=== PATIENT | male | born 1990 | race Caucasian/White ===

== ENCOUNTER → 2016-09-08 | Outpatient (CLI) | payer SELFPAY ==
[~2016-09-08] MED LIST: AEROSPAN80 MCG/Act IH; ALBUTEROL0.09 MG/A2 INH; ALBUTEROL2.5 MG/0.5 INH; ANAPROX DS550 MG PO; CLARITIN10 MG PO; FLOVENT0.044 MG/A IH; LEVOFLOXACIN500 MG PO; LOMOTIL 0.025 M1 TA1 PO; MEDROL DOSEPAK4 MG PO; NKHM; PHENERGAN25 M1 PO; PREDNICOT20 MG PO; PREDNISONE10 MG PO; PREDNISONE20 M1 PO; PROAIR HFA0.09 MG/AC IH; PROVENTIL0.09 MG/AC IH; ROBITUSSIN AC 110 ML PO; SEPTRA DS 800 M1 TAB PO; VIBRAMYCIN100 MG PO; ZITHROMAX Z PA250 MG PO; ZITHROMAX250 MG PO
== END | disposition home or self-care (01) ==
LOC: RESCLI 02:39
DX: J45.909 Unspecified asthma, uncomplicated (principal); F17.211 Nicotine dependence, cigarettes, in remission; Z88.0 Allergy status to penicillin

== ENCOUNTER → 2017-03-08 | Outpatient (CLI) | payer SELFPAY | END | disposition home or self-care (01) | LOC: RESCLI 03:32 | DX: J45.909 Unspecified asthma, uncomplicated (principal); Z88.0 Allergy status to penicillin ==

== ENCOUNTER 2018-01-26 15:10 | Emergency (ER) | payer SELFPAY ==
[~2018-01-26] VITALS: Ht 200.6 cm; Wt 104.3 kg
[2018-01-26] MEDS ORDERED: SYMB80 INH (15:19)
[2018-01-26] MEDS ORDERED: PREDNISONE20 M1 PO (17:03)
== END 2018-01-26 17:02 | disposition home or self-care (01) ==
LOC: ED 15:10
DX: J45.901 Unspecified asthma with (acute) exacerbation (principal); Z88.0 Allergy status to penicillin

== ENCOUNTER 2018-06-10 16:30 | Emergency (ER) | payer SELFPAY ==
[~2018-06-10] VITALS: Ht 200.6 cm; Wt 104.3 kg
[~2018-06-10 16:30] MED LIST changes: +SYMB80 INH
[2018-06-10] MEDS ORDERED: CLARITIN10 MG PO (16:44)
[2018-06-10] MEDS ORDERED: PROAIR HFA8.5 GM INH (16:44)
[2018-06-10] MEDS ORDERED: PREDNISONE10 MG PO (16:44)
[2018-06-10] MEDS ORDERED: FLONASE ALLERG9.9 ML NAS (16:44)
== END 2018-06-10 17:40 | disposition home or self-care (01) ==
LOC: ED 16:30
DX: J20.9 Acute bronchitis, unspecified (principal); R03.0 Elevated blood-pressure reading, without diagnosis of hypertension; J45.909 Unspecified asthma, uncomplicated; F17.200 Nicotine dependence, unspecified, uncomplicated; Z88.0 Allergy status to penicillin; Z79.899 Other long term (current) drug therapy

== ENCOUNTER 2019-02-24 22:26 | Emergency (ER) | payer SELFPAY ==
[~2019-02-24] VITALS: Ht 200.6 cm; Wt 104.3 kg
[~2019-02-24 22:26] MED LIST changes: +FLONASE ALLERG9.9 ML NAS; +PROAIR HFA8.5 GM INH
== END 2019-02-24 22:48 | disposition home or self-care (01) ==
LOC: ED 22:26
DX: J45.909 Unspecified asthma, uncomplicated (principal); Z76.0 Encounter for issue of repeat prescription; Z88.0 Allergy status to penicillin; Z79.899 Other long term (current) drug therapy

== ENCOUNTER 2019-03-30 14:52 | Emergency (ER) | payer SELFPAY ==
[~2019-03-30] VITALS: Ht 200.6 cm; Wt 104.3 kg
[2019-03-30] MEDS ORDERED: PREDNISONE20 M1 PO (15:27)
[2019-03-30] MEDS ORDERED: PROVENTIL HFA6.7 GM INH (15:27)
== END 2019-03-30 15:51 | disposition home or self-care (01) ==
LOC: ED 14:52
DX: J45.901 Unspecified asthma with (acute) exacerbation (principal); Z88.0 Allergy status to penicillin; Z79.899 Other long term (current) drug therapy

== ENCOUNTER 2019-05-26 14:55 | Emergency (ER) | payer SELFPAY ==
[~2019-05-26] VITALS: Ht 200.6 cm; Wt 104.3 kg
[~2019-05-26 14:55] MED LIST changes: +PROVENTIL HFA6.7 GM INH
[2019-05-26] MEDS ORDERED: PROAIR HFA8.5 GM INH (15:21)
[2019-05-26] MEDS ORDERED: PREDNISONE50 MG PO (15:21)
== END 2019-05-26 15:29 | disposition home or self-care (01) ==
LOC: ED 14:55
DX: J45.901 Unspecified asthma with (acute) exacerbation (principal); Z76.0 Encounter for issue of repeat prescription; F17.200 Nicotine dependence, unspecified, uncomplicated; Z79.899 Other long term (current) drug therapy; Z88.0 Allergy status to penicillin

== ENCOUNTER 2019-07-30 14:52 | Emergency (ER) | payer SELFPAY ==
[~2019-07-30] VITALS: Ht 200.6 cm; Wt 113.4 kg
[~2019-07-30 14:52] MED LIST changes: +PREDNISONE50 MG PO
[2019-07-30] MEDS ORDERED: PROVENTIL HFA6.7 GM INH (15:10)
[2019-07-30] MEDS ORDERED: PREDNISONE20 M1 PO (15:28)
== END 2019-07-30 15:58 | disposition home or self-care (01) ==
LOC: ED 14:52
DX: J45.909 Unspecified asthma, uncomplicated (principal); Z76.0 Encounter for issue of repeat prescription; Z88.0 Allergy status to penicillin

== ENCOUNTER → 2020-02-29 | Outpatient (CLI) | payer SELFPAY | END | disposition home or self-care (01) | LOC: RESCLI 00:37 | DX: J45.909 Unspecified asthma, uncomplicated (principal); Z00.00 Encounter for general adult medical examination without abnormal findings; Z13.39 Encounter for screening examination for other mental health and behavioral disorders; Z72.0 Tobacco use; Z71.6 Tobacco abuse counseling; Z88.0 Allergy status to penicillin; Z79.899 Other long term (current) drug therapy ==

== ENCOUNTER → 2020-06-10 | Outpatient (CLI) | payer SELFPAY | END | disposition home or self-care (01) | LOC: RESCLI 02:17 | PROVIDERS: ATTEND Internal Medicine Nephrology | DX: J45.909 Unspecified asthma, uncomplicated (principal); Z00.00 Encounter for general adult medical examination without abnormal findings; Z13.39 Encounter for screening examination for other mental health and behavioral disorders; F17.210 Nicotine dependence, cigarettes, uncomplicated; Z79.899 Other long term (current) drug therapy; Z88.0 Allergy status to penicillin ==

== ENCOUNTER → 2020-12-02 | Outpatient (CLI) | payer SELFPAY | END | disposition home or self-care (01) | LOC: RESCLI 00:47 | PROVIDERS: ATTEND Internal Medicine Nephrology | DX: J45.909 Unspecified asthma, uncomplicated (principal); F17.210 Nicotine dependence, cigarettes, uncomplicated; Z79.899 Other long term (current) drug therapy; Z88.0 Allergy status to penicillin ==

== ENCOUNTER → 2022-01-27 | Outpatient (CLI) | payer SELFPAY | END | disposition home or self-care (01) | LOC: RESCLI 01-26 04:58 | PROVIDERS: ATTEND Internal Medicine | DX: J45.909 Unspecified asthma, uncomplicated (principal); Z72.0 Tobacco use; Z79.899 Other long term (current) drug therapy; Z88.0 Allergy status to penicillin ==

== ENCOUNTER 2024-05-03 19:29 | Emergency (ER) | payer SELFPAY ==
[~2024-05-03] VITALS: Ht 200.6 cm; Wt 108.9 kg
[2024-05-03] MEDS ORDERED: Albuterol Sulfate 2.5 MG/3 ML VIAL NEB ONE (20:30)
[2024-05-03] MEDS ORDERED: methylPREDNISolone sod succ 125 MG VIAL IM ONE (20:30)
[2024-05-03 20:44] LABS: BASO % 0.4 % (0.0-1.0); EOS % 0.5 % (1.0-4.0); HEMATOCRIT 46.8 % (42.0-52.0); LYMPH # 1.6 10*3/uL (1.3-4.4); LYMPH % 28.2 % (27.0-41.0); MEAN CELL VOLUME 88.8 fl (80.0-94.0); MEAN CORPUSCULAR HGB 30.9 pg (27.0-31.0); MEAN CORPUSCULAR HGB CONC 34.8 g/dl (33.0-37.0); MONO # 0.5 10*3/uL (0.1-1.0); MONO % 8.5 % (3.0-9.0); NEUT # 3.5 10*3/uL (2.3-7.9); NEUT % 62.2 % (47.0-73.0); PLATELET COUNT AUTOMATED 229 10*3/uL (130-400); RED BLOOD COUNT 5.27 10*6/uL (4.50-5.90); RED CELL DISTRI WIDTH 11.9 % (0-14.5); WHITE BLOOD COUNT 5.7 10*3/uL (4.8-10.8)
[2024-05-03 20:59] LABS: ACT PARTIAL THROMBO TIME 28.9 SECONDS (20.0-32.1)
[2024-05-03 21:03] LABS: BUN 6 mg/dl (9-23); CHLORIDE 105 mmol/L (98-107); POTASSIUM 3.5 mmol/L (3.4-5.1)
[2024-05-03] MEDS ORDERED: PREDNISONE50 MG PO (21:35)
[2024-05-03] MEDS ORDERED: VENT7GM INH (21:35)
== END 2024-05-03 22:01 | disposition home or self-care (01) ==
LOC: ED 19:29
PROVIDERS: Nurse Practitioner
DX: J45.901 Unspecified asthma with (acute) exacerbation (principal); Z88.0 Allergy status to penicillin; F17.290 Nicotine dependence, other tobacco product, uncomplicated